=== PATIENT | female | born 1985 | race Caucasian/White ===

== ENCOUNTER 2019-09-28 18:25 | Emergency (ER) | payer OTHER ==
[~2019-09-28] VITALS: Ht 175.3 cm; Wt 117.9 kg
[2019-09-28] MEDS ORDERED: CYMBALTA30 MG PO (18:43)
[2019-09-28] MEDS ORDERED: LEVOTHYROXINE75 MCG PO (18:44)
[2019-09-28] MEDS ORDERED: TRILEPTAL600 MG PO (18:44)
[2019-09-28] MEDS ORDERED: AZO STANDARD95 MG PO (18:44)
[2019-09-28] MEDS ORDERED: PROMETHAZINE HC25 M1 PO (20:17)
[2019-09-28] MEDS ORDERED: NORCO 5-325 TA1 EACH PO (20:17)
[2019-09-28] MEDS ORDERED: BACTRIM DS TAB1 EACH PO (20:17)
== END 2019-09-28 20:59 | disposition home or self-care (01) ==
LOC: ED 18:25
DX: N39.0 Urinary tract infection, site not specified (principal); F17.200 Nicotine dependence, unspecified, uncomplicated; Z79.899 Other long term (current) drug therapy
CPT/HCPCS: 74176; 80053; 81001; 84703; 85025; 96374; 96375; 96376; 99284-25; J1885; J2270; J2405; J7030

== ENCOUNTER 2021-01-12 13:47 | Emergency (ER) | payer OTHER ==
[~2021-01-12] VITALS: Ht 175.3 cm; Wt 117.5 kg
[~2021-01-12 13:47] MED LIST: AZO STANDARD95 MG PO; BACTRIM DS TAB1 EACH PO; CYMBALTA30 MG PO; LEVOTHYROXINE75 MCG PO; NORCO 5-325 TA1 EACH PO; PROMETHAZINE HC25 M1 PO; TRILEPTAL600 MG PO
[2021-01-12] MEDS ORDERED: HYDROCODON-ACE1 EA10 PO (15:43)
== END 2021-01-12 15:53 | disposition home or self-care (01) ==
LOC: ED 13:47
DX: M54.9 Dorsalgia, unspecified (principal); F17.200 Nicotine dependence, unspecified, uncomplicated
CPT/HCPCS: 74176; 80053; 81001; 84703; 85025; 96374; 96375; 99284-25; J1885; J2405; J7030

== ENCOUNTER 2021-07-09 09:57 | Emergency (ER) | payer OTHER ==
[~2021-07-09] VITALS: Ht 175.3 cm; Wt 117.5 kg
[~2021-07-09 09:57] MED LIST changes: +HYDROCODON-ACE1 EA10 PO
[2021-07-09] MEDS ORDERED: CYCLOBENZAPRINE10 MG PO (12:28)
[2021-07-09] MEDS ORDERED: VENTOLIN HFA18 GM INH (12:28)
[2021-07-09] MEDS ORDERED: TAMIFLU75 MG PO (12:28)
== END 2021-07-09 12:42 | disposition home or self-care (01) ==
LOC: ED 09:57
DX: J10.1 Influenza due to other identified influenza virus with other respiratory manifestations (principal); Z20.822 Contact with and (suspected) exposure to COVID-19; F17.200 Nicotine dependence, unspecified, uncomplicated
CPT/HCPCS: 96372; 99284; A9270; J1885; U0003

== ENCOUNTER 2021-07-16 17:27 | Emergency (ER) | payer OTHER ==
[~2021-07-16] VITALS: Ht 175.3 cm; Wt 118.4 kg
[~2021-07-16 17:27] MED LIST changes: +CYCLOBENZAPRINE10 MG PO; +TAMIFLU75 MG PO; +VENTOLIN HFA18 GM INH
--- OUTSIDE RECORDS SUMMARY | 2021-07-16 17:30 | XMS ---
PreManage Notification: EZRA GUO Security [employer]er Events No recent Security Events currently on file CRITERIA MET - [facility] - 2 Visits in 30 Days CARE PROVIDERS There are no care providers on record at this time. Andrew has no Care Guidelines for this patient. Dorothy V[facility] (12 MO.) [facility] NOTE: Visits indicate total known visits. ED/C VISIT TRACKING (12 MO.) 07/16/2021 17:[address] [facility] [place] TYPE: Emergency COMPLAINT: - COUGH 07/09/2021 10:00 [facility] [place] TYPE: Emergency COMPLAINT: - COLD, BODY ACHES, COUGH, VOMITING, UNABLE TO EAT DIAGNOSES: - Nicotine dependence, unspecified, uncomplicated - COUGH, UNSPECIFIED - Influenza due to other identified influenza virus with other respiratory manifestations 01/12/2021 13:48 [facility] [place] TYPE: Emergency COMPLAINT: - FLANK PAIN DIAGNOSES: - Nicotine dependence, unspecified, uncomplicated - Dorsalgia, unspecified - Unspecified abdominal pain INPATIENT VISIT TRACKING (12 MO.) No inpatient visits to display in this time frame [email or web address]
[2021-07-16] MEDS ORDERED: LORATADINE10 MG PO (21:24)
[2021-07-16] MEDS ORDERED: MELOXICAM15 MG PO (21:24)
[2021-07-17] MEDS ORDERED: BENZONATATE100 MG PO (01:57)
== END 2021-07-17 02:05 | disposition home or self-care (01) ==
LOC: ED 17:27
DX: J10.1 Influenza due to other identified influenza virus with other respiratory manifestations (principal); K12.0 Recurrent oral aphthae; F17.200 Nicotine dependence, unspecified, uncomplicated; Z79.899 Other long term (current) drug therapy
CPT/HCPCS: 71045; 99283-25; J1100